=== PATIENT | female | born 1985 | race Caucasian/White ===

== ENCOUNTER → 2016-10-07 | Outpatient (CLI) | payer BC ==
[~2016-10-07] MED LIST: AMOX875T2 PO; BUPR300T57; FLUT9.9S INH; HYDR-347 PO; HYDR-4246 PO; MELA3TAB30 PO; MONT10TA22 PO; NO ROUTINE MEDS; ONDA4TAB7 PO; PRED10TA PO; TAMS-1 PO; [UNRECOGNIZED DRUG - CODE]
--- NOTE | 2016-10-07 16:19 | DI ---
Indication: ITS.REASON: R10.9 ABD PAIN R10.2 PELVIC PAIN PROCEDURE: CT RENAL W/O CONTRAST: Encounter: Initial Comparison: None Technique: Axial CT images were performed through the abdomen and pelvis without intravenous contrast. Coronal and sagittal two-dimensional reformats. Automated Exposure Control and Iterative Reconstruction dose reducing techniques were utilized. Findings: The lung bases are clear. The unenhanced contours of the liver are within normal limits. The gallbladder is normal. The spleen, pancreas and adrenal glands are within normal limits. Bilateral small renal stones. There is a 3 mm stone in the inferior pole of the right kidney. 2 mm stone in the interpolar left kidney. There is a 3 mm stone in the area of the right distal ureter on axial thin slice image #167. It is difficult to determine if this is within the ureter or a small adjacent phlebolith. No hydroureter or inflammatory change. Bladder is decompressed. No abdominal or pelvic lymphadenopathy. Uterus and ovaries appear normal. No free fluid. No evidence of a bowel obstruction. The appendix is normal. Bone windows show probable bone island within the L2 vertebra. Impression: Bilateral nephrolithiasis and a possible nonobstructing small right distal ureteral stone. .
== END ==
LOC: IMA 15:42
PROVIDERS: ATTEND Family Medicine
DX: N20.0 Calculus of kidney (principal)

== ENCOUNTER 2016-10-11 05:00 | Emergency (ER) | payer BC ==
[~2016-10-11] VITALS: Ht 163.8 cm; Wt 106.9 kg
[~2016-10-11 05:00] MED LIST changes: -AMOX875T2 PO; -FLUT9.9S INH; -HYDR-347 PO; -MONT10TA22 PO; -ONDA4TAB7 PO; -TAMS-1 PO; -[UNRECOGNIZED DRUG - CODE]
[2016-10-11 05:13] VITALS: Ht 163.8 cm; Wt 106.9 kg
[2016-10-11] MEDS ORDERED: MONT10TA22 PO (05:25)
[2016-10-11] MEDS ORDERED: FLUT9.9S INH (05:25)
[2016-10-11] MEDS ORDERED: [UNRECOGNIZED DRUG - CODE] (05:25)
[2016-10-11] MEDS ORDERED: AMOX875T2 PO (05:25)
[2016-10-11] MEDS ORDERED: NORMAL SALINE 1,000 ML IV ONE (05:29)
[2016-10-11] MEDS ORDERED: KETOROLAC 30mg/ml INJECTION IV ONE (05:30)
[2016-10-11] MEDS ORDERED: ONDANSETRON 4mg/2ml INJECTION IV ONE (05:45)
--- NOTE | 2016-10-11 06:05 | ERPDOC ---
Departure Disposition Decision Date: Oct 11, 2016 Disposition Decision Time: 07:43 (LIA GIL DO) Disposition: 01 DISCHARGED HOME, SELF-CARE Impression Impression (NOVEMBER,NORMA ) Impression: Primary Impression: Kidney stone Severity: Mild (LIA GIL DO) Condition: Improved Seen By: Physician only (LIA GIL DO) Referrals: MUSTAPHA SPAIN DO (Family) 2 Days Patient Instructions: Kidney Stones (ED) Problems/Meds/Labs Reviewed?: Yes Medications reviewed and manag: Yes (LIA GIL DO) Additional Instructions: Dr. Sundar Perkins - [id number] [facility] [id number] [facility] [id number] Mental Status: Alert, Oriented (NOVEMBERNORMA DO) Follow up care ordered?: Yes Mental Status: Alert, Oriented (LIA GIL DO) Scripts Tamsulosin HCl (Flomax) 0.4 Mg Capsule 0.4 MG PO HS for 7 Days, #7 CAP 0 Refills Take 1 capsule, by mouth, one time a day at BEDTIME. Prov: LIA GIL DO 10/11/16 Hydrocodone/Acetaminophen ([place] 7.5-325 Tablet) 7.5-325 Tablet 1 TAB PO Q4HR for 3 Days, #18 TAB 0 Refills Prov: LIA GIL DO 10/11/16 Ondansetron (Zofran Odt) 4 Mg Tab.rapdis 4 MG PO Q4HR Y for NAUSEA &/OR VOMITING for 3 Days, #18 TAB 0 Refills Prov: LIA GIL DO 10/11/16 HPI - Female General Chief Complaint: Abdominal Pain Stated Complaint: KIDNEY STONE Time Seen by Provider: 05:30 Source: patient, old records Exam Limitations: no limitations (BRENDANORMA DO) Time Seen by Provider: 06:21 (LIA GIL DO) HPI - Female Initial Comments 31yo woman presents today with right flank pain. Pt was seen in this ER 3 days ago and dx'ed with distal ureterolithiasis. Pt had only had hematuria; this AM at 0300, she had abrupt onset of severe right flank pain. 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 Occurred At: home Onset: Rapid Duration: 1-3 hrs Pain Scale: Now & Worst: 10/10 Severity/Quality: cramping, sharpness Location: right flank Radiation: groin Activities at Onset: sleep Prior Genitourinary Problems: similar symptoms Modifying Factors: IMPROVES WITH: rest, urinating, WORSE WITH: movement, palpation Associated Symptoms: fever/chills, nausea/vomiting, polyuria Hx of Similar Symptoms: Yes Is Pt now?: No () Allergies: Coded Allergies: bupropion (Verified Allergy, Unknown, 10/11/16) cefaclor (Verified Allergy, Unknown, 10/11/16) Past History Past Medical History Respiratory: asthma GI: IBS Female: kidney stones Neurological: migraines Psychological: depression () Surgical History General: exploratory laparotomy, tonsils () Vaccines Hx Influenza Vaccination: Yes (FALL 2013) () Social History Sexuality: male partner () Review of Systems General: frequency, hematuria, renal stones, urgency () All other Systems All Other Systems: Reviewed and Negative () Physical Exam General General Nourishment: well nourished, well developed, appears stated age, no acute distress, adult, obese General Body Habitus: well groomed () Vitals and Pain First Documented Vital Signs Date Time Temp Pulse Resp B/P Pulse Ox O2 Delivery O2 Flow Rate FiO2 10/11/16 05:13 98.1 112 18 159/89 99 Room Air (LIA GIL DO) Vitals and Pain Weight: Kilograms: 106.900 Height (feet): 5 Height (inches): 4.50 Triage Pain Scale: () RN VS reviewed by Provider: Yes () Normal Exams: Head: Normocephalic w/o trauma Eyes: Pupils are PERRLA w/ EOMI, No scleral icterus, irritation ENMT: No facial trauma, nasal exudates, pharyngeal erythema Neck: Full range of motion, without adenopathy, JVD Chest/Resp: Clear all reddy, with good airflow, and symmetry bilaterally CV: Regular rate and rhythm, without murmur or gallop, Pulses 2+ all extremities, capillary refill Abdomen: Bowel sounds positive, soft, non-tender, non-distended, no hepatosplenomegaly Lymphatic: No lymphadenopathy Musculoskeletal: No tenderness, or deformity noted Integumentary: No rashes, hives, or bruising noted Neurologic: Patient is alert, and oriented Psychiatric: Patient exhibits, appropriate attention () Differential Diagnoses Considering: Constipation/Obstipation, IBS, IBD, Ectopic , New Diagnosis, , Pyelonephritis, Renal Colic, UTI () Progress Results/Orders Orders Procedure Category Date Status Time Cbc W/Auto LAB 10/11/16 Complete Diff-Reflex Manual 05:29 Bmp - Basic Metabolic LAB 10/11/16 Complete Panel 05:29 Iv Lock (Ed Only) EDM 10/11/16 Transmitted 05:29 Normal Saline (Normal PHA 10/11/16 Complete Saline Iv) 05:29 Ketorolac (Toradol) PHA 10/11/16 Complete 05:30 LAB 10/11/16 Complete Qualitative, Urine 05:29 Ondansetron Inj PHA 10/11/16 Complete (Zofran) 05:45 UA, LAB 10/11/16 Complete Dip&Micro(Complete) & 06:13 Ct Renal W/O Contrast CT 10/11/16 Taken 06:26 (LIA GIL DO) Lab Results Laboratory Tests Test 10/11/16 05:53 10/11/16 06:13 White Blood Count 8.2T/MM3 Red Blood Count 4.83M/MM3 Hemoglobin 13.2GM/DL Hematocrit 39.8% Mean Corpuscular Volume 82.4UM3 Mean Corpuscular Hemoglobin 27.3UUG Mean Corpuscular Hemoglobin Concent 33.2GM/DL RDW Standard Deviation 39.8FL Platelet Count 286T/MM3 Mean Platelet Volume 9.0UM3 Immature Granulocyte % (Auto) 0.1% Neutrophils (%) (Auto) 64.9% Lymphocytes (%) (Auto) 27.5% Monocytes (%) (Auto) 5.6% Eosinophils (%) (Auto) 1.5% Basophils (%) (Auto) 0.4% Absolute Immature Granulocyte (auto 0.01T/MM3 Absolute Neutrophils (auto) 5.3T/MM3 Absolute Lymphocytes (auto) 2.3T/MM3 Absolute Monocytes (auto) 0.5T/MM3 Absolute Eosinophils (auto) 0.1T/MM3 Absolute Basophils (auto) 0.0T/MM3 Turbidity < 20 Sodium Level 145MEQ/L Potassium Level 4.2MEQ/L Chloride Level 106MEQ/L Carbon Dioxide Level 26MEQ/L Anion Gap 13MEQ/L Blood Urea Nitrogen 12.0MG/DL Creatinine 0.9MG/DL Glomerular Filtration Rate Calc 74 BUN/Creatinine Ratio 13RATIO Glucose Level 98MG/DL Calculated Osmolality 279MOSM/KG Calcium Level 9.5MG/DL Icterus Index < 2 Chemistry Specimen Hemolysis < 15 Urine Collection Type Cleancatch-midstream Urine Color Yellow Urine Turbidity Sl cloudy Urine pH 5.5 Urine Specific [place] 1.010 Urine Protein Negative Urine Glucose (UA) Negative Urine Ketones Negative Urine Blood 3+ Urine Nitrite Negative Urine Bilirubin Negative Urine Urobilinogen 0.2EU/DL Urine Leukocyte Esterase Negative Urine RBC 5-10/HPF Urine WBC None seen/HPF Urine Squamous Epithelial Cells 5-10 Urine Bacteria None seen Urine Culture Indicated Cult not indicated Urine Test Negative (LIA GIL DO) Medications Current ED Medications Sodium Chloride (Normal Saline IV) 1,000 ml @ 0 mls/hr Q0M ONCE IV Last administered on 10/11/16 06:11; Start 10/11/16 at 05:29; Stop 10/11/16 at 05:30; Status DC Ketorolac Tromethamine (Toradol) 30 mg O ONCE IV Last administered on 06:11; Start 10/11/16 at 05:30; Stop 10/11/16 at 05:31; Status DC Ondansetron HCl (Zofran) 4 mg O ONCE IV Last administered on 10/11/16 06:12; Start 10/11/16 at 05:45; Stop 10/11/16 at 05:46; Status DC (LIA GIL DO) Progress Progress Labs/imaging were discussed in detail with the patient and questions are answered. Patient is given IV hydration. She is given analgesic pain medication with improvement of symptoms in the emergency Department. Patient is discharged home in improved condition. She is to follow up as instructed. She is to return to the emergency Department if her condition worsens or changes in any manner. Patient and family are in agreement with the current plan of management. Patient is discharged home in improved condition. Patient is to continue taking her previously prescribed amoxicillin as previously directed. She is provided with prescriptions for [place], Flomax, and Zofran. Patient was discussed in detail with Dr. Sundar Perkins of urology and will follow- up with him in the office next week. She is to call for appointment time on Thursday morning. (LIA GIL DO) CT CT : CT: Abd/Pelvis no contrast Interpretation: Abnormal (2.5 mm calculus in the distal right ureter with mild hydroureter and hydronephrosis. Otherwise no acute processes.), Faxed Report (LIA GIL DO) NORMA GUTIERREZ DO Oct 11, 2016 06:05 LIA GIL DO Oct 11, 2016 07:49
[2016-10-11 06:06] LABS: BASOPHILS % (AUTO) 0.4 % (0-2); EOSINOPHILS # (AUTO) 0.1 T/MM3 (0-0.5); EOSINOPHILS % (AUTO) 1.5 % (0-4); HCT - HEMATOCRIT 39.8 % (36-46); HGB - HEMOGLOBIN 13.2 GM/DL (12-16); IMMATURE GRANULOCYTE # (AUTO) 0.01 T/MM3 (0.00-0.03); IMMATURE GRANULOCYTE % (AUTO) 0.1 % (0.0-0.5); LYMPHOCYTES # (AUTO) 2.3 T/MM3 (1-4.8); LYMPHOCYTES % (AUTO) 27.5 % (23-45); MEAN CORPUSCULAR HGB 27.3 UUG (26-34); MEAN CORPUSCULAR HGB CONC(MCHC 33.2 GM/DL (31-37); MEAN CORPUSCULAR VOLUME 82.4 UM3 (80-100); MONOCYTES # (AUTO) 0.5 T/MM3 (0-0.8); MONOCYTES % (AUTO) 5.6 % (0-9.0); NEUTROPHILS #(AUTO)-ABSOLUTE 5.3 T/MM3 (1.8-7.7); NEUTROPHILS % (AUTO) 64.9 % (33-66); RED BLOOD COUNT 4.83 M/MM3 (4.00-5.20); WBC - WHITE BLOOD COUNT 8.2 T/MM3 (4.5-11.0)
[2016-10-11 06:11] LABS: ANION GAP 13 MEQ/L (5-15); BUN/CREATININE RATIO 13 RATIO (6-26); CALCIUM 9.5 MG/DL (8.4-10.2); CHLORIDE 106 MEQ/L (98-107); CO2 - CARBON DIOXIDE 26 MEQ/L (22-30); CREATININE 0.9 MG/DL (0.7-1.2); GLOMERULAR FILTRATION RATE 74; GLUCOSE 98 MG/DL (65-110); POTASSIUM 4.2 MEQ/L (3.6-5); SODIUM 145 MEQ/L (134-144)
[2016-10-11 06:24] LABS: BLOOD, URINE 3+ (NEGATIVE); COLOR,URINE YELLOW (YELLOW); LEUKOCYTE ESTERASE ,URINE NEGATIVE (NEGATIVE); NITRITE,URINE NEGATIVE (NEGATIVE); UROBILINOGEN,URINE 0.2 EU/DL (NORMAL)
[2016-10-11 06:35] LABS: BACTERIA,URINE NONE SEEN (NEGATIVE); WBC,URINE NONE SEEN /HPF (0-5)
--- NOTE | 2016-10-11 06:40 | NUR ---
CT PT TO CT.
--- NOTE | 2016-10-11 06:53 | NUR ---
CT PT RETURNED FROM CT.
--- NOTE | 2016-10-11 07:09 | NUR ---
PAIN REASSESSMENT PT STATES HER PAIN IS DOWN TO A 1/10, DENIES ANY NAUSEA. PT IS SITTING UPRIGHT IN ROOM WATCHING TELEVISION. PT SHOWS NO SIGNS OF ACUTE DISTRESS.
[2016-10-11] MEDS ORDERED: TAMS-1 PO (07:46)
[2016-10-11] MEDS ORDERED: ONDA4TAB7 PO (07:46)
[2016-10-11] MEDS ORDERED: HYDR-347 PO (07:46)
[2016-10-11 07:55] VITALS: BP 140/68; PULSE 64; RESP 15; TEMP 98; O2SAT 98
--- NOTE | 2016-10-12 09:24 | DI ---
Indication: ITS.REASON: R flank pain PROCEDURE: CT RENAL W/O CONTRAST: Encounter: Initial Comparison: October 07, 2016 Technique: Axial CT images were performed through the abdomen and pelvis without intravenous contrast. Coronal and sagittal two-dimensional reformats. Automated Exposure Control and Iterative Reconstruction dose reducing techniques were utilized. Findings: The lung bases are clear. The unenhanced contours of the liver, gallbladder, spleen, pancreas and adrenal glands are within normal limits. There is perinephric stranding surrounding the right kidney with a small lower pole right renal stone. Mild right hydronephrosis. Small nonobstructing left renal stones are unchanged. No left ureteral stone. Right ureter is difficult to follow given the lack of intra-abdominal fat. There does appear to be a stable 3 mm stone in the distal aspect of the ureter, similar to the prior study. Bladder is normal. Uterus and ovaries are normal. No free air. No evidence of bowel obstruction. Bony structures are unchanged. Impression: Stable appearance of the 3 mm right distal ureteral stone causing mild obstruction. There is a preliminary report by [facility]. .
== END 2016-10-11 07:48 | disposition home or self-care (01) ==
LOC: ED 05:00
DX: N13.2 Hydronephrosis with renal and ureteral calculous obstruction (principal); Z87.442 Personal history of urinary calculi
CPT/HCPCS: 80048; 81001; 81025; 85025